=== PATIENT | male | born 1985 | race Caucasian/White ===

== ENCOUNTER 2025-04-18 07:46 | Inpatient (IN) | payer SELFPAY ==
[~2025-04-18] VITALS: Ht 165.1 cm; Wt 67.7 kg
[2025-04-18 08:22] VITALS: O2SAT 100
[2025-04-18 08:26] LABS: BASOPHILS % 0.9 % (0.0-2.0); EOSINOPHILS % 1.6 % (0.0-5.0); HEMATOCRIT. 39.8 % (42.0-52.0); HEMOGLOBIN. 13.6 g/dL (14.0-18.0); LYMPHOCYTES % 16.4 % (20.0-50.0); MEAN PLATELET VOLUME 8.4 fl (7.4-10.4); MONOCYTES % 13.4 % (2.0-8.0); NEUTROPHILS % 67.7 % (40.0-76.0); PLATELET 228 x1000/uL (130-400); RED BLOOD CELL COUNT 4.47 mill/uL (4.7-6.1); RED CELL DISTRIBUTION WIDTH 13.2 % (11.6-14.6)
[2025-04-18] MEDS: LORAZEPAM 2MG/ML UD SYRINGE IM SCH (08:30)
[2025-04-18] MEDS: OLANZAPINE 10 MG/VIAL IM ONE (08:30)
[2025-04-18 08:40] LABS: CREATININE 0.9 mg/dL (0.6-1.3); UREA NITROGEN BLOOD 7 mg/dL (9-23)
[2025-04-18 10:38] LABS: ETHANOL BLOOD < 10 mg/dL (<10); TROPONIN I HIGH SENSITIVITY < 4 ng/L (3.0-53)
[2025-04-18 11:04] LABS: TROPONIN I HIGH SENSITIVITY < 4 ng/L (3.0-53)
[2025-04-18] MEDS ORDERED: ACETAMINOPHEN 325MG TABLET PO PRN (11:30)
[2025-04-18] MEDS ORDERED: CLONIDINE 0.1MG TABLET PO PRN (11:30)
[2025-04-18] MEDS ORDERED: MAGNESIUM/ALUMINUM HYDROXIDE/SIMETHICONE 30ML UDC PO PRN (11:30)
[2025-04-18] MEDS ORDERED: NALOXONE HCL 0.4MG/ML VIAL IV PRN (11:30)
[2025-04-18] MEDS: ENOXAPARIN 40MG/0.4ML SYR SUBCUT SCH (11:30)
[2025-04-18] MEDS ORDERED: ONDANSETRON HCL 4MG/2ML INJ IV PRN (11:30)
[2025-04-18] MEDS ORDERED: HYDROCODONE/ACETAMINOPHEN 5/325MG TABLET PO PRN (11:30)
[2025-04-18] MEDS ORDERED: ZOLPIDEM TARTRATE 5MG TABLET PO PRN (11:30)
[2025-04-18] MEDS: SODIUM CHLORIDE 0.9% 1,000 ML IV SCH (12:10)
[2025-04-18 13:37] VITALS: BP 142/64; PULSE 82; RESP 18; TEMP 36.696
[2025-04-18] MEDS: THIAMINE HCL 100MG TABLET PO SCH (14:15)
[2025-04-18 16:00] VITALS: BP 115/67; PULSE 66; RESP 18; TEMP 36.4; O2SAT 99
[2025-04-18 20:00] VITALS: BP 145/65; PULSE 66; RESP 18; TEMP 37.3; O2SAT 98
[2025-04-19] VITALS: BP 145/70; PULSE 67; RESP 18; TEMP 36.4; O2SAT 100
[2025-04-19 04:00] VITALS: BP 140/67; PULSE 65; RESP 18; TEMP 36.8; O2SAT 99
[2025-04-19 06:56] LABS: HEMATOCRIT. 36.5 % (42.0-52.0); HEMOGLOBIN. 12.4 g/dL (14.0-18.0); MEAN PLATELET VOLUME 9.7 fl (7.4-10.4); PLATELET 204 x1000/uL (130-400); RED BLOOD CELL COUNT 4.08 mill/uL (4.7-6.1); RED CELL DISTRIBUTION WIDTH 13.0 % (11.6-14.6)
[2025-04-19 07:07] LABS: CREATININE 1.0 mg/dL (0.6-1.3); UREA NITROGEN BLOOD 7 mg/dL (9-23)
[2025-04-19 08:00] VITALS: BP 130/76; PULSE 60; RESP 16; TEMP 36.7; O2SAT 98
[2025-04-19] MEDS: PANTOPRAZOLE SODIUM 40 MG/VIAL IV SCH (09:17)
[2025-04-19 09:47] LABS: *AMPHETAMINES SCREEN URINE NEGATIVE (NEGATIVE); *BARBITURATES SCREEN URINE NEGATIVE (NEGATIVE); *BENZODIAZEPINES SCREEN URINE NEGATIVE (NEGATIVE); *COCAINE SCREEN URINE NEGATIVE (NEGATIVE); CANNABINOID URINE SCREEN NEGATIVE (NEGATIVE); ECSTASY MDMA SCREEN URINE NEGATIVE (NEGATIVE); METHADONE URINE SCREEN NEGATIVE (NEGATIVE); OPIATES URINE SCREEN NEGATIVE (NEGATIVE); PHENCYCLIDINE URINE SCREEN NEGATIVE (NEGATIVE)
[2025-04-19 12:00] VITALS: BP 124/74; PULSE 80; RESP 18; TEMP 36.8; O2SAT 97
[2025-04-19 13:49] LABS: BAND% 1.0 % (1.0-6.0); LYMPHOCYTES % MANUAL 24.0 % (20.0-50.0); MONOCYTES % MANUAL 17.0 % (2.0-8.0); NEUTROPHILS % MANUAL 58.0 % (45.0-75.0); PLATELET ESTIMATE NORMAL
[2025-04-19 16:00] VITALS: BP 97/47; PULSE 56; RESP 20; TEMP 37.2; O2SAT 96
[2025-04-19 20:00] VITALS: BP 98/47; PULSE 63; RESP 20; TEMP 36.5; O2SAT 96
[2025-04-20] VITALS: BP 78/38; PULSE 60; RESP 20; TEMP 36.2
[2025-04-20 04:00] VITALS: BP 110/42; PULSE 62; RESP 20; TEMP 36.3; O2SAT 98
[2025-04-20 08:25] VITALS: BP 91/50; PULSE 62; RESP 18; TEMP 37.6; O2SAT 96
[2025-04-20 09:31] LABS: BASOPHILS % 0.5 % (0.0-2.0); EOSINOPHILS % 3.0 % (0.0-5.0); HEMATOCRIT. 37.5 % (42.0-52.0); HEMOGLOBIN. 12.6 g/dL (14.0-18.0); LYMPHOCYTES % 30.3 % (20.0-50.0); MEAN PLATELET VOLUME 9.0 fl (7.4-10.4); MONOCYTES % 11.7 % (2.0-8.0); NEUTROPHILS % 54.5 % (40.0-76.0); PLATELET 186 x1000/uL (130-400); RED BLOOD CELL COUNT 4.21 mill/uL (4.7-6.1); RED CELL DISTRIBUTION WIDTH 13.3 % (11.6-14.6)
[2025-04-20 09:46] LABS: CREATININE 0.8 mg/dL (0.6-1.3); UREA NITROGEN BLOOD 6 mg/dL (9-23)
[2025-04-20 12:20] VITALS: BP 105/57; PULSE 67; RESP 18; TEMP 37.2; O2SAT 96
[2025-04-20 20:00] VITALS: BP 98/59; PULSE 70; RESP 18; TEMP 37.3; O2SAT 98
[2025-04-21] VITALS: BP 95/60; PULSE 54; RESP 18; TEMP 37.1; O2SAT 99
[2025-04-21] MEDS: SODIUM CHLORIDE 0.9% 1,000 ML IV ONE (00:52)
[2025-04-21 01:55] LABS: BG BASE EXCESS 3.6 mmol/L (-2.0-3.0); BG CARBOXYHEMOGLOBIN 0.7 % (0.5-1.5); BG DEOXYHEMOGLOBIN 2.2 % (0.0-5.0); BG FRACTION INSPIRED OXYGEN 21; BG HCO3 ACT 28.8 mmol/L (21.0-28.0); BG METHEMOGLOBIN 0.0 % (0.5-1.5); BG OXYGEN SATURATION 97.8 % (94.0-98.0); BG OXYHEMOGLOBIN 97.1 % (94.0-98.0); BG PCO2 45.9 mmHg (35.0-48.0); BG PH 7.415 (7.350-7.450); BG PO2 97.3 mmHg (83.0-108.0); BG SAMPLE SITE RIGHT RADIAL; BG TOTAL HEMOGLOBIN 13.0 g/dL (13.5-17.5); BG VENT MODE ROOM AIR
[2025-04-21 04:00] VITALS: BP 96/52; PULSE 44; RESP 18; TEMP 36.2; O2SAT 98
[2025-04-21 08:00] VITALS: BP 108/80; PULSE 81; RESP 20; TEMP 37.2; O2SAT 98
[2025-04-21 09:56] LABS: BASOPHILS % 0.6 % (0.0-2.0); EOSINOPHILS % 3.8 % (0.0-5.0); HEMATOCRIT. 36.6 % (42.0-52.0); HEMOGLOBIN. 12.3 g/dL (14.0-18.0); LYMPHOCYTES % 37.5 % (20.0-50.0); MEAN PLATELET VOLUME 8.8 fl (7.4-10.4); MONOCYTES % 9.6 % (2.0-8.0); NEUTROPHILS % 48.5 % (40.0-76.0); PLATELET 169 x1000/uL (130-400); RED BLOOD CELL COUNT 4.10 mill/uL (4.7-6.1); RED CELL DISTRIBUTION WIDTH 13.3 % (11.6-14.6)
[2025-04-21 10:17] LABS: CREATININE 0.9 mg/dL (0.6-1.3)
[2025-04-21 10:18] LABS: UREA NITROGEN BLOOD 5 mg/dL (9-23)
[2025-04-21 12:00] VITALS: BP 98/42; PULSE 60; RESP 18; TEMP 36.6; O2SAT 97
[2025-04-21] MEDS ORDERED: THIA100T72 PO (13:17)
[2025-04-21 16:00] VITALS: BP 101/49; PULSE 53; RESP 20; TEMP 37; O2SAT 95
[2025-04-21 20:00] VITALS: BP 101/58; PULSE 49; RESP 20; TEMP 36.8; O2SAT 97
[2025-04-22] VITALS: BP 101/52; PULSE 46; RESP 18; TEMP 36.5
[2025-04-22 04:00] VITALS: BP 99/49; PULSE 50; RESP 18; TEMP 36.8; O2SAT 98
[2025-04-22 08:00] VITALS: BP 96/59; PULSE 56; RESP 18; TEMP 36.7; O2SAT 96
[2025-04-22 12:00] VITALS: BP 100/64; PULSE 58; RESP 18; TEMP 36.8; O2SAT 96
[2025-04-22] MEDS: OLANZAPINE 5MG TABLET ODT PO SCH (12:54)
[2025-04-22 16:00] VITALS: BP 110/74; PULSE 60; RESP 18; TEMP 36.7; O2SAT 98
[2025-04-22 20:00] VITALS: BP 100/42; PULSE 48; RESP 18; TEMP 36.9; O2SAT 97
[2025-04-23] VITALS: BP 101/48; PULSE 64; RESP 18; TEMP 36.6; O2SAT 97
[2025-04-23 04:00] VITALS: BP 120/50; PULSE 65; RESP 18; TEMP 36.6; O2SAT 97
[2025-04-23 08:00] VITALS: BP 100/84; PULSE 58; RESP 20; TEMP 37; O2SAT 98
[2025-04-23 12:00] VITALS: BP 110/79; PULSE 53; RESP 18; TEMP 37.1; O2SAT 98
[2025-04-23 16:00] VITALS: BP 98/60; PULSE 53; RESP 18; TEMP 37.1; O2SAT 98
[2025-04-23 20:00] VITALS: BP 91/49; PULSE 49; RESP 18; TEMP 36.5; O2SAT 97
[2025-04-24] VITALS: BP 98/51; PULSE 43; RESP 18; TEMP 36.4; O2SAT 98
[2025-04-24 04:00] VITALS: BP 99/43; PULSE 42; RESP 18; TEMP 36.3; O2SAT 97
[2025-04-24 08:14] VITALS: BP 87/41; PULSE 50; RESP 20; TEMP 36.5; O2SAT 100
[2025-04-24 12:00] VITALS: BP 97/40; PULSE 64; RESP 15; TEMP 36.9; O2SAT 100
[2025-04-24 12:12] VITALS: BP 92/62; PULSE 56; RESP 22; TEMP 97.6
[2025-04-24] MEDS ORDERED: OLAN5TAB74 MT (12:28)
== END 2025-04-24 14:18 | disposition home or self-care (01) | DRG 137 ==
LOC: ER 07:46 → 7WST 10:01 → EDBEDREQTM 10:30 → EDBEDREQ 10:30 → ENRESERV 12:14 → 7WST 13:30
PROVIDERS: ADMIT Internal Medicine; ATTEND Internal Medicine
DX: U07.1 COVID-19 (principal); G92.8 Other toxic encephalopathy; F29 Unspecified psychosis not due to a substance or known physiological condition; I10 Essential (primary) hypertension; F94.0 Selective mutism; F15.90 Other stimulant use, unspecified, uncomplicated
CPT/HCPCS: 36415; 36600; 71045; 80048; 80305; 80307; 80320; 80329; 82140; 82375; 82805; 84443; 84484; 85025; 87426; 93005; 93970; 99291; J1650; J2060; J2470; J3490; G0480